=== PATIENT | male | born 1985 | race Caucasian/White ===

== ENCOUNTER 2021-12-23 15:10 | Inpatient (IN) | payer BC, MEDICAID, SELFPAY ==
[2021-12-23 15:24] VITALS: BP 164/119; PULSE 82; RESP 18; TEMP 36.2; O2SAT 98
[2021-12-23] MEDS: LORazepam 2 mg/mL INJ 1 mL IM (15:55)
[2021-12-23 16:11] VITALS: BMI 26.9
[2021-12-23 20:11] VITALS: BP 142/99; PULSE 79; RESP 18; TEMP 36.6; O2SAT 98
[2021-12-23] MEDS: acetaminophen 325 mg Tablet 650 MG PO (21:49)
[2021-12-23] MEDS: LORazepam 2 mg Tablet PO (21:49)
[2021-12-23] MEDS: mirtazapine 15 mg Tablet PO (23:11)
[2021-12-23] MEDS: gabapentin 300 mg Capsule PO (23:12)
--- NOTE | 2021-12-24 04:13 | PC.NURSE ---
2149 Patient scored a 13 on his CIWA and had complaints of a headache. Lorazepam 2 mg po and Tylenol 650 mg po was given. Medications were effective as the patient continues to rest.
[2021-12-24 06:00] VITALS: BP 136/88; PULSE 74; RESP 16; TEMP 36.5; O2SAT 97
--- NOTE | 2021-12-24 07:51 | W.PM.NPUH&PS ---
Providers/Chief Complaint Admitting Physician: Donell Aponte MD Chief Complaint: NPU Admit HPI NPU History of Present Illness Alan Alarcon is a 36 year old male Admitted through an outside emergency department with the following report: 36-year-old male presents after ingestion of morning glory seeds, a toxic alkaloid. He is tachypneic with dry mucous membranes and claims he cannot urinate. The pressure stable no clonus no fever. Bladder scan without significant retention patient declined straight cath. Discuss with poison control, recommend supportive care and benzodiazepines the patient becomes acutely agitated to possibly check ACK level. His pH is within normal limits normal renal function and negative coingestants of an ethanol patient was given IV fluids and observe for several hours patient medically cleared greater than six hours after ingestion per toxicology recommendations. Patient evaluated behavior health specialist recommends inpatient psychiatric admission. ?Affidavit from [facility] dairy management specialist: Alan presented to the [facility] ER be out walking for intentional ingestion of morning glory seeds and alcohol. Alan stated his intent was to get high and to try and hurt himself. Bennett stated that he was also weaving in and out of traffic on foot in a suicide attempt. Alan is still endorsing suicidal ideation with a plan of doing the same thing if he is discharged. Alan denies homicidal ideation or hallucinations. Alan's last discharge from [facility] was December 07. When he asked what changed lAan stated that he did not take his prescribed medication he received. Alan is diagnosed major depressive disorder, general anxiety disorder and antisocial personality disorder. Alan has had nine inpatient behavioral health admission since 2019. He was admitted to the neuropsychiatry unit for definitive treatment of these issues. He says that he started having more problems a few weeks ago when his mother kicked him out. He has been homeless most of the time recently. He says nothing happened but his mother just got tired of him living there. He has been unemployed for the last 3 months. He said he had a crap job and they did not treat him well and he quit. He ran out of his Celexa, Remeron, gabapentin and lisinopril about 2 weeks ago and has been worse since then. He says that he took an accidental overdose of heroin about 1 week ago and actually but was brought back to life with Narcan. He has been doing some methamphetamine but does not think that it is much of a problem. Methamphetamine has caused his brain to play tricks on him before but he does not think that it did this time. He took 3 morning glory seeds in an attempt to have an acid trip. He said it worked well. He said that he was jumping in and out of traffic trying to get hit by a car. He says that he is tired of his life and is hopeless. He was suicidal yesterday but denies suicidal ideation at this moment. He does not want to go to [place] and would like for us to look for a [place] health care facility to take him here.He says that his diagnosis is major depressive disorder and anxiety disorder. He has had multiple hospitalizations. He denies ever hearing voices or having hallucinations except as induced by methamphetamine. PAST PSYCHIATRIC HISTORY As above SOCIAL HISTORY As above Meds NPU Home Medications Medication Instructions Recorded Confirmed Last Taken Type citalopram 20 mg tablet 20 mg PO DAILY 12/23/21 12/23/21 Unknown History gabapentin 300 mg capsule 300 mg PO TID 12/23/21 12/23/21 Unknown History lisinopril 20 mg tablet 20 mg PO DAILY 12/23/21 12/23/21 Unknown History mirtazapine 15 mg tablet 15 mg PO BEDTIME 12/23/21 12/23/21 Unknown History Allergies Allergy/AdvReac Type Severity Reaction Status Date / Time No Known Allergies Allergy Verified 12/23/21 21:40 Mental Status Exam MSE Comments: This is a 36-year-old mildly overweight male who appears approximately his stated age says that he has no acute distress. He is in bed at 7:30 AM and awoke easily. He was pleasant and cooperative with the evaluation. He is poorly groomed and in hospital scrubs. He has several days growth of small. psychomotor activity is normal. Speech is at a regular rate and rhythm, normal volume, good articulation, not pressured. Alert, oriented X3 Attention and concentration appears to be intact. Memory is intact Mood is depressed. Affect is mildly dysphoric. Thought process is logical and goal-directed. Thought content: Denies auditory and visual hallucinations. No delusions or paranoia are noted. No current suicidal ideation but admits to suicidal ideation yesterday and no homicidal ideation. Fund of knowledge is average. Insight and judgment appear to be poor. Impulse control is impaired. Vitals/I&O/Wt Last Vital Signs Temp 97.7 F 12/24/21 06:00 Pulse 74 12/24/21 06:00 Resp 16 12/24/21 06:00 BP 136/88 12/24/21 06:00 Pulse Ox 97 12/24/21 06:00 Weight last 48 hrs Weight 97.522 kg A&P Assessment and plan (1) Drug abuse, opioid type: Status: Acute (2) Methamphetamine abuse: Status: Acute (3) Suicidal behavior: Status: Acute (4) Depression: Status: Acute (5) Anxiety: Status: Acute Plan This is a 36-year old male who reports a diagnosis of major depression and anxiety disorder who also abuses multiple substances including opiates and methamphetamine and was suicidal yesterday jumping in and out of traffic. Plan: 1. Restart current medications. 2. Continue every 15 minute checks for safety. 3. Encourage individual, group and milieu therapies. 4. Encourage sober living treatment after discharge at the highest level of care to which he is willing to commit. 5. We will monitor for safety for himself in the community prior to discharge. Involuntary Hold Information 96 Hour Hold: 96 Hour Involuntary Admission: No Attestations NPU Medical Necessity Statement*: Inpatient hospitalization is medically necessary and the clinically appropriate intervention at this time. We will initiate medications and make changes as indicated. He will be in the hospital for over 2 midnights. Likely length of stay 4-6 days Coding Level of Care Code Acute Client Technical Professional for Hossein Fwd Diagnoses Drug abuse, opioid type F11.10 Methamphetamine abuse F15.10 Suicidal behavior R45.89 Depression F32.A Anxiety F41.9
[2021-12-24] MEDS: thiamine 100 mg Tablet PO (09:15)
[2021-12-24] MEDS: lisinopril 20 mg Tablet PO (09:15)
[2021-12-24] MEDS: citalopram 20 mg Tablet PO (09:15)
[2021-12-24] MEDS: multivitamin therapeutic Tablet 1 TAB PO (09:15)
[2021-12-24] MEDS: gabapentin 300 mg Capsule PO ×3 (09:15→20:44)
[2021-12-24] MEDS: folic acid 1 mg Tablet PO (09:15)
--- NOTE | 2021-12-24 11:33 | NPU.GN ---
[facility] Group Topic:Janeth Puentes General Mood of Group: Alan did not attend group as he wanted to sleep.
[2021-12-24 14:00] VITALS: BP 144/97; PULSE 76; RESP 20; TEMP 37; O2SAT 97
[2021-12-24 20:10] VITALS: BP 158/97; PULSE 78; RESP 20; TEMP 36.3; O2SAT 98
[2021-12-24] MEDS: mirtazapine 15 mg Tablet PO (20:44)
[2021-12-25 06:00] VITALS: BP 154/95; PULSE 78; RESP 18; TEMP 36.5; O2SAT 98
[2021-12-25] MEDS: citalopram 20 mg Tablet PO (10:11)
[2021-12-25] MEDS: multivitamin therapeutic Tablet 1 TAB PO (10:11)
[2021-12-25] MEDS: folic acid 1 mg Tablet PO (10:11)
[2021-12-25] MEDS: gabapentin 300 mg Capsule PO ×3 (10:11→20:01)
[2021-12-25] MEDS: thiamine 100 mg Tablet PO (10:12)
[2021-12-25] MEDS: lisinopril 20 mg Tablet PO (10:12)
[2021-12-25] MEDS: LORazepam 2 mg Tablet PO ×2 (10:20→19:59)
[2021-12-25] MEDS: nicotine 4 mg lozenge MUCOUS MEM ×2 (10:36→17:30)
[2021-12-25] MEDS: blistex lip oint 7 gm Tube 1 APPLIC TOPICAL (10:36)
--- NOTE | 2021-12-25 11:22 | NPU.GN ---
[facility] Topic: Roll The Dice General Mood of Group: Alan did not attend group today.
--- NOTE | 2021-12-25 12:19 | P.NPUPN_ITS ---
Subjective NPU Subjective: He says that his anxiety and depression are still pretty bad. He denies any auditory or visual hallucinations. He does not feel that his medications are working so far but is going to give it more time. He just started taking them again yesterday. Mental Status Exam MSE Comments: This is a 36-year-old mildly overweight male who appears approximately his stated age says that he has no acute distress. He is in bed at 12:30 PM and awoke easily. He was pleasant and cooperative with the evaluation. He is poorly groomed and in hospital scrubs. He has several days growth of small. psychomotor activity is normal. Speech is at a regular rate and rhythm, normal volume, good articulation, not pressured. Alert, oriented X3 Attention and concentration appears to be intact. Memory is intact Mood is depressed. Affect is mildly dysphoric. Thought process is logical and goal-directed. Thought content: Denies auditory and visual hallucinations. No delusions or paranoia are noted. No current suicidal ideation but admits to suicidal ideation yesterday and no homicidal ideation. Fund of knowledge is average. Insight and judgment appear to be poor. Impulse control is impaired. Cognition: Patient Appearance: Appropriate Ability to Follow Directions: Excellent Patient Orientation (long list): Person, Place, Time, Name, Age, Birthday, Month and Year Comprehension Ability: No Impairment Hallucination Type: None Delusion Description: Not Present Thought Process: Appropriate Affect: Affect Description: Anxious and Flat Behavior: Patient Behavior: Appropriate and Cooperative Speech Pattern: Delayed Vitals/I&O/Wt Last Vital Signs Temp 97.7 F 12/25/21 06:00 Pulse 78 12/25/21 06:00 Resp 18 12/25/21 06:00 BP 154/95 12/25/21 06:00 Pulse Ox 98 12/25/21 06:00 Weight last 48 hrs Weight 97.522 kg A&P Assessment and plan (1) Drug abuse, opioid type: Status: Acute (2) Methamphetamine abuse: Status: Acute (3) Suicidal behavior: Status: Acute (4) Depression: Status: Acute (5) Anxiety: Status: Acute Plan This is a 36-year old male who reports a diagnosis of major depression and anxiety disorder who also abuses multiple substances including opiates and methamphetamine and was suicidal yesterday jumping in and out of traffic. Plan: 1. Restart current medications. 2. Continue every 15 minute checks for safety. 3. Encourage individual, group and milieu therapies. 4. Encourage sober living treatment after discharge at the highest level of care to which he is willing to commit. 5. We will monitor for safety for himself in the community prior to discharge. Involuntary Hold Information 96 Hour Hold: 96 Hour Involuntary Admission: No Attestations NPU Medical Necessity Statement*: Inpatient hospitalization is medically necessary and the clinically appropriate intervention at this time. We will initiate medications and make changes as indicated. Coding Level of Care Code Acute Assembler Final for g Fwd Diagnoses Drug abuse, opioid type F11.10 Methamphetamine abuse F15.10 Suicidal behavior R45.89 Depression F32.A Anxiety F41.9
[2021-12-25 14:00] VITALS: BP 150/90; PULSE 74; RESP 20; TEMP 36.8; O2SAT 96
[2021-12-25] MEDS: acetaminophen 325 mg Tablet 650 MG PO (19:58)
[2021-12-25] MEDS: ondansetron 4 MG Tablet PO (19:59)
[2021-12-25] MEDS: mirtazapine 15 mg Tablet PO (20:01)
[2021-12-25 21:05] VITALS: BP 135/80; PULSE 120; RESP 20; TEMP 36.6; O2SAT 96
--- NOTE | 2021-12-26 05:08 | PC.NURSE ---
1958 Patient in his room getting his vital signs taken. RN to assess. Patient scored a 13 on his CIWA. He had a headache and nausea. Lorazepam 2 mg po, Tylenol 650mg po, and Zofran 4mg po given for detox symptoms. Patient has been sleeping since medicated to this note. Medications effective.
[2021-12-26 06:00] VITALS: BP 122/80; PULSE 74; RESP 16; TEMP 36.2; O2SAT 97
[2021-12-26] MEDS: nicotine 4 mg lozenge MUCOUS MEM ×3 (09:24→19:59)
[2021-12-26] MEDS: lisinopril 20 mg Tablet PO (09:24)
[2021-12-26] MEDS: gabapentin 300 mg Capsule PO ×3 (09:24→21:03)
[2021-12-26] MEDS: citalopram 20 mg Tablet PO (09:24)
[2021-12-26] MEDS: multivitamin therapeutic Tablet 1 TAB PO (09:24)
[2021-12-26] MEDS: folic acid 1 mg Tablet PO (09:24)
[2021-12-26] MEDS: blistex lip oint 7 gm Tube 1 APPLIC TOPICAL (09:24)
[2021-12-26] MEDS: thiamine 100 mg Tablet PO (09:24)
--- NOTE | 2021-12-26 11:33 | NPU.GN ---
[facility] Topic:Coping Mechanisms Activity General Mood of Group:Alan did not attend group today.
--- NOTE | 2021-12-26 13:38 | P.NPUDS_ITS ---
Diagnoses at Discharge Discharge Diagnosis (1) Drug abuse, opioid type: Status: Acute (2) Methamphetamine abuse: Status: Acute (3) Suicidal behavior: Status: Acute (4) Depression: Status: Acute (5) Anxiety: Status: Acute Reason for Visit Reason for Visit: NPU Admit Brief History: History of Present Illness Alan Alarcon is a 36 year old male Admitted through an outside emergency department with the following report: 36-year-old male presents after ingestion of morning glory seeds, a toxic alkaloid. He is tachypneic with dry mucous membranes and claims he cannot urinate. The pressure stable no clonus no fever. Bladder scan without significant retention patient declined straight cath. Discuss with poison control, recommend supportive care and benzodiazepines the patient becomes acutely agitated to possibly check ACK level. His pH is within normal limits normal renal function and negative coingestants of an ethanol patient was given IV fluids and observe for several hours patient medically cleared greater than six hours after ingestion per toxicology recommendations. Patient evaluated behavior health specialist recommends inpatient psychiatric admission. ?Affidavit from [facility] office services specialist: Alan presented to the [facility] be out walking for intentional ingestion of morning glory seeds and alcohol. Alan stated his intent was to get high and to try and hurt himself. Bennett stated that he was also weaving in and out of traffic on foot in a suicide attempt. Alan is still endorsing suicidal ideation with a plan of doing the same thing if he is discharged. Alan denies homicidal ideation or hallucinations. Alan's last discharge from [facility] was December 07. When he asked what changed Alan stated that he did not take his prescribed medication he received. Alan is diagnosed major depressive disorder, general anxiety disorder and antisocial personality disorder. Alan has had nine inpatient [facility] admission since 2019. He was admitted to the neuropsychiatry unit for definitive treatment of these issues.? He says that he started having more problems a few weeks ago when his mother kicked him out.? He has been homeless most of the time recently.? He says nothing happened but his mother just got tired of him living there.? He has been unemployed for the last 3 months.? He said he had a crap job and they did not treat him well and he quit.? He ran out of his Celexa, Remeron, gabapentin and lisinopril about 2 weeks ago and has been worse since then.? He says that he took an accidental overdose of heroin about 1 week ago and actually but was brought back to life with Narcan.? He has been doing some methamphetamine but does not think that it is much of a problem.? Methamphetamine has caused his brain to play tricks on him before but he does not think that it did this time.? He took 3 morning glory seeds in an attempt to have an acid trip.? He said it worked well.? He said that he was jumping in and out of traffic trying to get hit by a car.? He says that he is tired of his life and is hopeless.? He was suicidal yesterday but denies suicidal ideation at this moment.? He does not want to go to [place] and would like for us to look for a [place] care facility to take him here.He says that his diagnosis is major depressive disorder and anxiety disorder.? He has had multiple hospitalizations.? He denies ever hearing voices or having hallucinations except as induced by methamphetamine. Hospital Course Hospital Course He slowly acclimated to the individual, group and milieu therapies provided. He was continued on his outpatient medications. for tolerated these doses and showed steady improvement during his stay. He was able to contract for safety outside hospital prior to discharge. During the hospitalization, patient had routine laboratory studies which were within normal limits except for few outliers. Additionally there was a general medical evaluation which was also within normal limits and revealed no new acute processes. Discharge Summary: At the time of discharge, lethality was denied and psychosis was resolving. Mood and anxiety were well managed. Patient endorsed a plan to follow-up with the aftercare recommendations of the treatment team. Patient was evaluated and deemed to be absent credible lethality, and had achieved the maximum benefit from an inpatient hospitalization, so was discharged. Involuntary Hold Information 96 Hour Hold: 96 Hour Involuntary Admission: No Mental Status Exam MSE Comments: This is a 36-year-old mildly overweight male who appears approximately his stated age says that he has no acute distress. He is in sitting in the dayroom at 8:30 AM. He was pleasant and cooperative with the evaluation. He is poorly groomed and in hospital scrubs. He has several days growth of small. psychomotor activity is normal. Speech is at a regular rate and rhythm, normal volume, good articulation, not pressured. Alert, oriented X3 Attention and concentration appears to be intact. Memory is intact Mood is depressed but better. Affect is mildly dysphoric. Thought process is logical and goal-directed. Thought content: Denies auditory and visual hallucinations. No delusions or paranoia are noted. No current suicidal ideation but admits to suicidal ideation yesterday and no homicidal ideation. Fund of knowledge is average. Insight and judgment appear to be poor. Impulse control is impaired. Cognition: Patient Appearance: Appropriate Ability to Follow Directions: Excellent Patient Orientation (long list): Person, Place, Time, Name, Age, Birthday, Month and Year Comprehension Ability: No Impairment Hallucination Type: None Delusion Description: Not Present Thought Process: Appropriate Affect: Affect Description: Appropriate Behavior: Patient Behavior: Appropriate and Cooperative Speech Pattern: Appropriate and Clear Discharge Data Vitals: Last Vital Signs Temp 97.2 F L 12/26/21 06:00 Pulse 74 12/26/21 06:00 Resp 16 12/26/21 06:00 BP 122/80 12/26/21 06:00 Pulse Ox 97 12/26/21 06:00 Discharge Plan Discharge Patient Disposition: Home Condition: Stable Prescriptions: Continued lisinopril 20 mg Tablet 20 mg PO DAILY 30 Days Qty: 30 0RF citalopram 20 mg Tablet 20 mg PO DAILY 30 Days Qty: 30 0RF gabapentin 300 mg Capsule 300 mg PO TID 30 Days Qty: 90 0RF mirtazapine 15 mg Tablet 15 mg PO BEDTIME 30 Days Qty: 30 0RF Discharge Orders: Discharge Order (Routine); Ordered 12/26/21 Ordered By: Donell Aponte Discharge Diet: Regular Discharge Activity: Resume usual activity Patient Instructions: Opioid Safety Discharge Attestations NPU Time Spent in Discharge Care*: less than 30 min Specific Discharge Activities: Specific discharge activities: educating patient, discussing with immigration case worker/social workers/dc planners, documenting/other paperwork and evaluating patient/reviewing data Coding Level of Care Code Acute [facility] DC note Diagnoses Drug abuse, opioid type F11.10 Methamphetamine abuse F15.10 Suicidal behavior R45.89 Depression F32.A Anxiety F41.9
[2021-12-26 13:58] VITALS: BP 122/80; PULSE 74; RESP 16; TEMP 36.2; O2SAT 97
[2021-12-26 14:00] VITALS: BP 144/91; PULSE 89; RESP 18; TEMP 36.4; O2SAT 96
[2021-12-26] MEDS: LORazepam 2 mg Tablet PO (17:50)
[2021-12-26] MEDS: mirtazapine 15 mg Tablet PO (21:03)
[2021-12-26 21:05] VITALS: BP 117/80; PULSE 108; RESP 17; TEMP 36.3; O2SAT 97
[2021-12-27 06:00] VITALS: BP 103/66; PULSE 70; RESP 19; TEMP 36.4; O2SAT 97
[2021-12-27] MEDS: citalopram 20 mg Tablet PO (09:16)
[2021-12-27] MEDS: thiamine 100 mg Tablet PO (09:16)
[2021-12-27] MEDS: gabapentin 300 mg Capsule PO (09:16)
[2021-12-27] MEDS: multivitamin therapeutic Tablet 1 TAB PO (09:16)
[2021-12-27] MEDS: nicotine 4 mg lozenge MUCOUS MEM (09:16)
[2021-12-27] MEDS: lisinopril 20 mg Tablet PO (09:16)
[2021-12-27] MEDS: folic acid 1 mg Tablet PO (09:16)
== END 2021-12-27 12:09 | disposition home or self-care (01) | DRG 918 ==
PROVIDERS: Admitting Provider Psychiatry & Neurology Psychiatry; Visit Provider Psychiatry & Neurology Psychiatry
DX: T40.992A Poisoning by other psychodysleptics [hallucinogens], intentional self-harm, initial encounter (principal); F32.9 Major depressive disorder, single episode, unspecified; F41.1 Generalized anxiety disorder; F60.2 Antisocial personality disorder; Z59.00 Homelessness unspecified; F11.10 Opioid abuse, uncomplicated; F15.10 Other stimulant abuse, uncomplicated
CPT/HCPCS: 96372; 97165; J2060; J3411; Q0162

== ENCOUNTER 2022-11-30 19:39 | Inpatient (IN) | payer OTHER, BC, MEDICAID, SELFPAY ==
[2022-11-30] MEDS: LORazepam 2 mg Tablet PO (21:07)
--- NOTE | 2022-11-30 21:17 | P.CONIM_ITS ---
Providers/Reason For Consult Consulting Physician/Specialty*: Eddie Abernathy MD, hospitalist Reason for Consult*: Swollen leg Requesting Physician: Dr. Sanders Attending Physician: Tian Sanders MD History of Present Illness History of Present Illness Alan Alarcon is a 37 year old male presenting as a transfer to the neuropsychiatric unit from [facility] in [place]. He apparently showed up there on the , after alcohol and methamphetamine use with suicidal and homicidal ideation. He reports he is still very depressed. He does not remember what happened to his leg, but has been swollen for the last 2 days. There were some notes at [facility] that he may have injured it somehow. He reports that throbs, is red, and is painful. He reports no previous issues with the leg. At [facility], an x-ray was done of the ankle. He denies any fevers. Review of Systems General: Reports: 10 or more systems reviewed and unremarkable except in HPI and below Const: Denies: fever(s), chills or fatigue Psych: Reports: anxiety and depression Medications/Allergies Home Medications Medication Instructions Recorded Confirmed Last Taken Type citalopram 20 mg tablet 20 mg PO DAILY 30 days #30 tabs 12/26/21 Unknown Rx gabapentin 300 mg capsule 300 mg PO TID 30 days #90 caps 12/26/21 Unknown Rx lisinopril 20 mg tablet 20 mg PO DAILY 30 days #30 tabs 12/26/21 Unknown Rx mirtazapine 15 mg tablet 15 mg PO BEDTIME 30 days #30 tabs 12/26/21 Unknown Rx Allergies Allergy/AdvReac Type Severity Reaction Status Date / Time No Known Allergies Allergy Verified 12/23/21 21:40 Current Medications Generic Name Dose Route Start Last Admin Trade Name Freq PRN Reason Stop Dose Admin Lorazepam 2 mg 11/30/22 20:16 11/30/22 21:07 Lorazepam 2 Mg Tablet PO 2 mg PROTOCOL PRN Administration WITHDRAWAL Protocol PFSH Acute PFSH: Medical History (Updated 11/30/22 @ 21:29 by Eddie Abernathy MD) Alcoholism Amphetamine use Hepatitis C Hypertension IgA nephropathy Social History (Updated 11/30/22 @ 21:20 by Eddie Abernathy MD) Smoking and tobacco status: current every day smoker Alcohol intake: current Substance/Drug Use: current Physical Exam Narrative: General exam is a white male, conversive, in no distress but compl aining of left leg pain. Blood pressure is noted to be high. It was significantly high at [facility] as well HEENT: Atraumatic and normocephalic Neck is supple no lymphadenopathy thyromegaly Cardiovascular regular rate and rhythm without murmur Lungs clear no wheezing or crackles Abdomen is soft with positive bowel sounds. No obvious organomegaly exam is deferred Extremities left lower extremity demonstrates some erythema and increased warmth. Some edema, mainly over the lateral leg. Cap refill is brisk. There are few abrasions, left ankle mainly posterior. Skin see findings above Neuro no obvious focal deficits Data Other Labs: Laboratory at [facility] included a CBC demonstrating white blood count of 13.2, hemoglobin of 13.3, platelet count of 3 and 46,000. Sodium 141, potassium 4.2, chloride 100, bicarb 21, BUN 30, creatinine 1.69, glucose 71 TSH was normal Salicylate and acetaminophen level were negative Amphetamine urine drug screen positive. Alcohol level 19. ALT 37, AST 173, rest of LFTs normal Ankle x-ray negative UA 1-6 red blood cells, 0-2 white blood cells COVID and influenza were negative A&P Assessment and plan (1) Cellulitis: He has a swollen left lower extremity. There is increased warmth. There is history of injury to the area, and some abrasion to his ankle. This appears to be cellulitis and he reports it is gotten worse over the last 2 days. He did have an x-ray done at [facility] but I do not see any other investigation or treatment. Secondary to his history we will treat cellulitis with Rocephin 1 g IM now, doxycycline 100 mg twice daily, and reevaluate tomorrow. Avoiding Bactrim secondary to history of elevated creatinine He does not appear septic, and does not have a fever. Secondary to his recent prolonged stay in the ER cannot completely rule out DVT although thought less likely. Check venous duplex. Secondary to abrasion on skin, tetanus shot Repeat x-rays of ankle and foot Close clinical follow-up Tylenol for pain, tramadol for breakthrough pain. Secondary to history of drug use try to avoid narcotics. We will also try to avoid ibuprofen with his abnormal creatinine. (2) Hypertension: Patient with elevated blood pressure. This was elevated at the ER at [facility] as well. Previously he was taking blood pressure on a daily basis. Norvasc 5 mg x 1 now Await BMP prior to deciding on daily blood pressure medication (3) IgA nephropathy: Recheck creatinine Avoid ibuprofen with past history of elevated creatinine. Avoid renal toxic medication. Plan Homicidal/suicidal ideation Substance abuse Multiple other medical problems as denoted in the past medical history Thank you for this consultation Consult Attestations Medical Necessity Statement: As per primary Diagnoses Cellulitis L03.90 Hypertension I10 IgA nephropathy N02.8
[2022-11-30 21:19] VITALS: BP 168/131; PULSE 96; RESP 18; TEMP 36.5; O2SAT 100
--- NOTE | 2022-11-30 21:22 | XRR_ITS ---
PROCEDURE INFORMATION: Exam: XR Left Ankle Exam date and time: 11/30/2022 9:51 PM Age: 37 years old Clinical indication: Pain; Ankle; Left; Additional info: Pain , swelling TECHNIQUE: Imaging protocol: Radiologic exam of the Left ankle. Views: 3 or more views. COMPARISON: CR (LOW EXM, ) 11/30/2022 9:37 PM FINDINGS: Bones/joints: There is no acute fracture or dislocation. If symptoms persist, follow-up imaging in several days may be useful to exclude an occult fracture. No other significant acute bone or joint abnormality. Soft tissues: Probably some diffuse soft tissue swelling. No visible soft tissue gas. XR/XR ankle LT min 3V* [id number] IMPRESSION: No acute fracture or dislocation.
--- NOTE | 2022-11-30 21:22 | XRR_ITS ---
PROCEDURE INFORMATION: Exam: XR Right Ankle Exam date and time: 11/30/2022 9:55 PM Age: 37 years old Clinical indication: Pain; Ankle; Right; Additional info: Pain, edema TECHNIQUE: Imaging protocol: Radiologic exam of the Right ankle. Views: 3 or more views. COMPARISON: No relevant prior studies available. FINDINGS: Bones/joints: There is no acute fracture or dislocation. If symptoms persist, follow-up imaging in several days may be useful to exclude an occult fracture. No other significant acute bone or joint abnormality. Soft tissues: Probably some diffuse soft tissue swelling. No visible soft tissue gas. XR/XR ankle RT min 3V* [id number] IMPRESSION: No acute fracture or dislocation.
--- NOTE | 2022-11-30 21:22 | XRR_ITS ---
PROCEDURE INFORMATION: Exam: XR Left Foot Exam date and time: 11/30/2022 9:37 PM Age: 37 years old Clinical indication: Pain; Foot; Left; Additional info: Pain , edema TECHNIQUE: Imaging protocol: Radiologic exam of the Left foot. Views: 3 or more views. COMPARISON: No relevant prior studies available. FINDINGS: Bones/joints: There is no acute fracture or dislocation. If symptoms persist, follow-up imaging in several days may be useful to exclude an occult fracture. No other significant acute bone or joint abnormality. Soft tissues: Probably some diffuse soft tissue swelling. No visible soft tissue gas. XR/XR foot LT min 3V* [id number] IMPRESSION: No acute fracture or dislocation.
--- NOTE | 2022-11-30 21:22 | USR_ITS ---
PROCEDURE INFORMATION: Exam: US Duplex Left Lower Extremity Veins, Limited Exam date and time: 11/30/2022 9:59 PM Age: 37 years old Clinical indication: Edema, localized; Lower extremity, left; Additional info: Edema, erythema TECHNIQUE: Imaging protocol: Real-time duplex ultrasound of the Left extremity with 2-D sequeira scale, color Doppler flow and spectral waveform analysis including responses to compression and other maneuvers (when performed) with image documentation. Limited exam focused on the left lower extremity veins. COMPARISON: No relevant prior studies available. FINDINGS: Evaluated veins include the left common femoral, proximal profunda femoral, proximal/mid/distal superficial femoral, popliteal, posterior tibial, peroneal, anterior tibial, and proximal greater saphenous veins. No visible clot in the included veins. The included veins appear normally compressible. Duplex Doppler evaluation demonstrates flow in the evaluated veins. US/CV venous duplex [facility] [id number] IMPRESSION: No evidence of acute left lower extremity DVT.
[2022-11-30] MEDS: nicotine 4 mg lozenge MUCOUS MEM (22:17)
[2022-11-30] MEDS: TRAMadol 50 mg Tablet PO (22:17)
[2022-11-30] MEDS: trazodone 50 mg Tablet PO (22:18)
[2022-11-30 22:23] LABS: Basophils # 0.1 10^3/uL (0.0-0.1); Basophils % 0.6 %; Eosinophils # 0.7 10^3/uL (0.0-0.8); Hematocrit 38.8 % (42.0-52.0); Hemoglobin 13.1 g/dL (11.7-16.6); Lymphocytes # 2.4 10^3/uL (0.8-4.8); Lymphocytes % 29.7 %; Mean Corpuscular HGB Conc 33.8 g/dL (30.0-36.0); Mean Corpuscular Hemoglobin 31.2 pg (28.0-34.0); Mean Corpuscular Volume 92.4 fl (80-94); Mean Platelet Volume 9.8 fL (7.4-10.4); Monocytes # 0.5 10^3/uL (0.2-0.9); Monocytes % 5.7 %; Neutrophils # 4.49 10^3/uL (1.8-7.7); Neutrophils % 55.6 %; Nucleated Red Blood Cells % 0 %; Platelet Count 310 10^3/cmm (130-400); White Blood Count 8.1 10^3/uL (4.0-10.0)
--- NOTE | 2022-11-30 22:30 | PC.NURSE ---
Patient seen by Dr. Abernathy hospitalist. N.O. received for ultrasound of LLE, CMP and x-ray of LLE. N.O. receives for tramadol for break through pain, Rocephin 1gm IM Now, Tetnus IM now, doxycycline 100mg BID. Suspected cellulitis. Medications given as ordered. Patient educated on medications and all questions answered.
[2022-11-30] MEDS: cefTRIAXone 1,000 MG, lidocaine 1% 2.1 ML in SYRINGE 1 EACH 2.1 MG IM (22:40)
[2022-11-30 22:45] LABS: Alanine Aminotransferase 30 U/L (0-41); Albumin Level 4.1 g/dL (3.5-5.2); Alkaline Phosphatase 76 U/L (40-130); Anion Gap 13.3 (5-19); Aspartate Amino Transferase 76 U/L (0-40); Blood Urea Nitrogen 23 mg/dL (6-20); Calcium 9.6 mg/dL (8.5-10.5); Carbon Dioxide 30 mmol/L (22-29); Chloride 99 mmol/L (98-107); Globulin 2.8 g/dL (1.3-4.6); Glomerular Filtration Rate 48.6 mL/min (90-130); Glucose 79 mg/dL (65-115); Osmolality Calculated 289 mOsm/kg (285-295); Potassium 4.3 mmol/L (3.5-5.1); Sodium 138 mmol/L (136-145); Total Bilirubin 0.2 mg/dL (0.15-1.2); Total Protein 6.9 g/dL (6.6-8.7)
[2022-11-30] MEDS: tetanus-diphtheria tox (adult) 0.5 mL SDV IM (22:45)
[2022-11-30] MEDS: amlodipine 5 mg Tablet PO (22:49)
[2022-11-30] MEDS: doxycycline 100 mg Tablet PO (22:49)
--- NOTE | 2022-11-30 23:00 | PC.NURSE ---
1929 patient arrived to floor via direct admit from [place], [place]. Patient arrived to unit on stretcher accompanied by EMT's and security. 37yr.old male admitted to room 151-1 with DX of SI. Patient is voluntary. Patient alert and Ox3. Appears anxious. Cooperative with assessment. Denies any current thoughts of SI but reports having SI over the past few days. Patient had a plan of using scissors to cut wrist but came to ED for help. Denies HI or AVH. Did c/o pain in LLE. LLE noted to be edematous and red from toes to mid calf. Warm to touch. Hospitalist contacted by housekeeper nanny for consult. Dr. Sanders made aware as well. Patient states he has a history of meth use and ETOH abuse. Stated last used both 2 days ago. Patient states he has served time in alf for having multiple DUI'S. Skin assessment completed with no open areas noted and no contraband found. Unit rules and expectations reviewed and voiced understanding. Snacks and fluids taken.
[2022-12-01] MEDS: LORazepam 2 mg Tablet PO ×2 (03:33→18:14)
[2022-12-01 06:00] VITALS: BP 128/73; PULSE 86; RESP 17; TEMP 36.7; O2SAT 95
[2022-12-01] MEDS: doxycycline 100 mg Tablet PO ×2 (08:26→18:14)
[2022-12-01] MEDS: thiamine 100 mg Tablet PO (08:26)
[2022-12-01] MEDS: folic acid 1 mg Tablet PO (08:27)
[2022-12-01] MEDS: multivitamin therapeutic Tablet 1 TAB PO (08:27)
[2022-12-01] MEDS: nicotine 4 mg lozenge MUCOUS MEM ×3 (08:31→21:40)
[2022-12-01] MEDS: TRAMadol 50 mg Tablet PO ×2 (08:31→18:15)
--- NOTE | 2022-12-01 09:15 | PM.PN ---
Subjective Subjective: Seen today. afebrile overnight Vitals/I&O/Wt Last Vital Signs Temp 98.1 F 12/01/22 06:00 Pulse 86 12/01/22 06:00 Resp 17 12/01/22 06:00 BP 128/73 12/01/22 06:00 Pulse Ox 95 12/01/22 06:00 O2 Del Method 12/01/22 06:00 Physical Exam Narrative: General exam: nad Cardiovascular regular rate and rhythm without murmur Lungs clear no wheezing or crackles Abdomen is soft with positive bowel sounds. Extremities left lower extremity demonstrates some erythema and increased warmth. Some edema, mainly over the lateral leg. Much improved since yesterday, almost resolved. Data 11/30/22 22:00 11/30/22 22:00 A&P Assessment and plan (1) Cellulitis: He has a swollen left lower extremity. There is increased warmth. There is history of injury to the area, and some abrasion to his ankle. This appears to be cellulitis and he reports it is gotten worse over the last 2 days. He did have an x-ray done at [facility] but I do not see any other investigation or treatment. Continue doxycycline 100 BID. Secondary to abrasion on skin, tetanus shot was given 11/30 Repeat x-rays of ankle and foot: Negative for fracture or infection Venous doppler negative for DVT. Close clinical follow-up Tylenol for pain, tramadol for breakthrough pain. Secondary to history of drug use try to avoid narcotics. We will also try to avoid ibuprofen with his abnormal creatinine. (2) Hypertension: Patient with elevated blood pressure. This was elevated at the ER at [facility] as well. Previously he was taking blood pressure on a daily basis. He got norvasc 5 x 1 yesterday. Check BMP in AM (3) IgA nephropathy: Recheck creatinine Avoid ibuprofen with past history of elevated creatinine. Avoid renal toxic medication. Plan Homicidal/suicidal ideation Substance abuse Multiple other medical problems as denoted in the past medical history Thank you for this consultation Attestations Medical Necessity Statement*: Defer to primary team Diagnoses Cellulitis L03.90 Hypertension I10 IgA nephropathy N02.8
--- NOTE | 2022-12-01 10:15 | P.NPUHP_ITS ---
Providers/Chief Complaint Admitting Physician: Tian Sanders MD Chief Complaint: depression HPI NPU History of Present Illness Alan Alarcon is a 37 year old male who had previously been evaluated at [facility] and admitted for 3 days in December 2021 who was transferred here from the emergency department at [facility] with suicidal ideation. Patient was admitted to the neuropsychiatric unit for further evaluation and treatment. He reports an extended history of depression and states that he has had some suicidal thoughts and reports that he has been homeless for the last few weeks. He reports that 1 week ago he was released from alf after staying in alf for 28 days for a drug-related offense. He has reported an extensive history of fentanyl abuse with reported opiate withdrawal occurring. Furthermore, he reports a significant history of alcohol dependence with a history of increased tolerance and significant withdrawal symptoms including seizures and blackouts. He reports consuming approximately half a gallon of alcohol a day. He also reports methamphetamine use for greater than 20 years. He reports having thoughts of killing himself and states that shortly after using methamphetamine he had had heard voices stating that he should hurt others. He had reported a history of psychotic symptoms secondary to the use of methamphetamine. He had also reported a past history of previous suicide attempts including drinking peroxide and cutting his wrist. He had reported feeling more paranoid over the past week. He had reported having problems with sleep continuity disruption and stated that he had not had his medication in several weeks. Denies any past history of tita. Past psychiatric history: He reports several psychiatric hospitalizations. He reports 7 previous hospitalizations beginning at the age of 23 suicidal ideation and a few for detox off of alcohol. Outpatient psychiatric history is reported to be through the [facility]. He reports previous medication trials include Celexa Remeron and gabapentin. He has no reported history of psychotherapy. Previous diagnoses include major depressive disorder polysubstance abuse and antisocial personality disorder. Medications: Mirtazapine 15 mg at night, gabapentin 300 mg 3 times a day, lisino pril 20 mg a day Medical history: Hypertension Surgical history right arm surgery Allergies: No known drug allergies Family psychiatric history: Alcohol dependence in mother Drug and alcohol history: Patient reports marijuana use beginning at the age of 14 leading to the use of stimulants including cocaine at the age of 17 followed by methamphetamine and alcohol abuse also at the age of 17. He reports a history of inpatient rehabilitation stints in the past and a variety of facilities near [place]. He had reported no history of methadone or Suboxone treatment for opiate dependence but reports opiate use for several years as well with withdrawal symptoms. He currently reports his significant consumption of alcohol on a daily basis for several years along with methamphetamine use for the last 20 years. Social history: Developmental history appeared unremarkable. He was born in [facility] and raised by his biological parents until they at the age of 8. He reports that he lived in between homes and is the only child of his biological parents. He reported no history of sexual physical or emotional abuse. He reports that he grew up near [place] and had graduated high school and attended 2 years of college at which time he began using illicit substances. He reports struggling to maintain work with a history of multiple incarcerations and a history of legal problems stating that he spent 4 years in longterm from the 2009 through 2013. Meds NPU Home Medications Medication Instructions Recorded Confirmed Last Taken Type citalopram 20 mg tablet 20 mg PO DAILY 30 days #30 tabs 12/26/21 Unknown Rx gabapentin 300 mg capsule 300 mg PO TID 30 days #90 caps 12/26/21 Unknown Rx lisinopril 20 mg tablet 20 mg PO DAILY 30 days #30 tabs 12/26/21 Unknown Rx mirtazapine 15 mg tablet 15 mg PO BEDTIME 30 days #30 tabs 12/26/21 Unknown Rx Allergies Allergy/AdvReac Type Severity Reaction Status Date / Time No Known Allergies Allergy Verified 12/23/21 21:40 [facility] NPU PFS: Medical History (Updated 12/01/22 @ 15:36 by Tian Sanders MD) Alcoholism Amphetamine use Hepatitis C Hypertension IgA nephropathy Social History (Updated 11/30/22 @ 21:20 by Eddie Abernathy MD) Smoking and tobacco status: current every day smoker Alcohol intake: current Substance/Drug Use: current Mental Status Exam MSE Comments: He is a casually dressed white male who appeared his stated age with a disheveled appearance and poor hygiene. His gait was within normal limits. There was no evidence of any abnormal involuntary motor movements tics or tremors appreciated. His speech was normal in regards to rate rhythm and prosody. His mood was described as depressed. His affect was restricted in range and mood congruent. He did not appear to be responding to internal stimuli. There was no evidence of any delusional thinking at this time and he endorsed auditory hallucinations but stated they had been more faint. There is no evidence of any visual hallucinations. His recent and remote memory appeared grossly intact. His insight was poor. His judgment is poor. His impulse control appeared poor as well. His attention span was variable. Vitals/I&O/Wt Last Vital Signs Temp 98.1 F 12/01/22 06:00 Pulse 86 12/01/22 06:00 Resp 17 12/01/22 06:00 BP 128/73 12/01/22 06:00 Pulse Ox 95 12/01/22 06:00 O2 Del Method 12/01/22 06:00 Data NPU 11/30/22 22:00 11/30/22 22:00 A&P Assessment and plan (1) Methamphetamine abuse: (2) Opioid dependence: (3) Alcohol dependence: Plan Patient is a 37-year-old white male with polysubstance abuse including opiates methamphetamine and alcohol along with a history of depression currently admitted with suicidal ideation with genetic loading for substance abuse as well. He is currently homeless. #1. Encourage sobriety at the highest level of care possible at this time #2. Therapeutic observation 15-minute checks. #3. CIWA protocol to monitor for alcohol withdrawal. #4 medicine consult to evaluate for possible cellulitis in right foot. Patient started on antibiotic. #5. Restart Remeron with likely increase and began Suboxone to target opiate dependence. #6 we will attempt to gather collateral information. Involuntary Hold Information 96 Hour Hold: 96 Hour Involuntary Admission: No Attestations NPU Medical Necessity Statement*: Patient will be hospitalized in the neuropsychiatric unit with length of stay expected to exceed 2 midnights with likely length of stay of 4 to 6 days. Patient's medications will be adjusted and reexamined while here on the unit. Coding Level of Care Code Acute Code for [facility] Diagnoses Methamphetamine abuse F15.10 Opioid dependence F11.20 Alcohol dependence F10.20
--- NOTE | 2022-12-01 10:52 | PC.NURSE ---
PRN Admin at 0831 Patient's left leg, ankle, and foot appear swollen. No edema noted, warm and hard to touch. Patient's lower left leg appears red. Cellulitis noted from examination by hospitalist last night. Patient currently on doxycyline for cellulitis. Patient voices complaint of pain at a 7/10. Patient administered tramadol 50 mg PO.
[2022-12-01 14:00] VITALS: BP 163/88; PULSE 99; RESP 20; TEMP 36.9; O2SAT 95
[2022-12-01] MEDS: buprenorphine-naloxone 4-1 mg Film 0.5 EACH SUBLINGUAL (18:14)
[2022-12-01 21:07] VITALS: BP 150/105; PULSE 83; RESP 18; TEMP 36.7; O2SAT 97
[2022-12-01] MEDS: mirtazapine 15 mg Tablet PO (21:38)
[2022-12-02] MEDS: LORazepam 2 mg Tablet PO (01:37)
[2022-12-02 06:00] VITALS: BP 134/88; PULSE 79; TEMP 36.4; O2SAT 96
[2022-12-02 08:33] LABS: Basophils # 0.1 10^3/uL (0.0-0.1); Basophils % 0.5 %; Eosinophils # 0.3 10^3/uL (0.0-0.8); Eosinophils % 3.3 %; Hematocrit 39.9 % (42.0-52.0); Lymphocytes # 2.8 10^3/uL (0.8-4.8); Lymphocytes % 29.6 %; Mean Corpuscular HGB Conc 35.1 g/dL (30.0-36.0); Mean Corpuscular Hemoglobin 31.8 pg (28.0-34.0); Mean Corpuscular Volume 90.7 fl (80-94); Mean Platelet Volume 9.6 fL (7.4-10.4); Monocytes # 0.4 10^3/uL (0.2-0.9); Monocytes % 4.6 %; Neutrophils # 5.76 10^3/uL (1.8-7.7); Neutrophils % 61.6 %; Nucleated Red Blood Cells % 0 %; Platelet Count 321 10^3/cmm (130-400); Red Cell Distribution Width 11.8 % (12.1-15.1); White Blood Count 9.4 10^3/uL (4.0-10.0)
[2022-12-02 08:52] LABS: Anion Gap 16.4 (5-19); Blood Urea Nitrogen 23 mg/dL (6-20); Calcium 9.6 mg/dL (8.5-10.5); Carbon Dioxide 25 mmol/L (22-29); Chloride 102 mmol/L (98-107); Glomerular Filtration Rate 61.8 mL/min (90-130); Glucose 88 mg/dL (65-115); Osmolality Calculated 291 mOsm/kg (285-295); Potassium 4.4 mmol/L (3.5-5.1); Sodium 139 mmol/L (136-145)
[2022-12-02] MEDS: doxycycline 100 mg Tablet PO ×2 (09:08→17:35)
[2022-12-02] MEDS: buprenorphine-naloxone 4-1 mg Film 0.5 EACH SUBLINGUAL (09:08)
[2022-12-02] MEDS: folic acid 1 mg Tablet PO (09:08)
[2022-12-02] MEDS: multivitamin therapeutic Tablet 1 TAB PO (09:08)
[2022-12-02] MEDS: thiamine 100 mg Tablet PO (09:08)
[2022-12-02] MEDS: nicotine 4 mg lozenge MUCOUS MEM (09:16)
[2022-12-02] MEDS: diphenhydrAMINE 50 mg Capsule PO (09:16)
[2022-12-02] MEDS: ondansetron 4 MG Tablet PO ×4 (13:00→18:26)
[2022-12-02] MEDS: TRAMadol 50 mg Tablet PO ×2 (13:00→13:15)
--- NOTE | 2022-12-02 13:12 | PC.NURSE ---
PT GIVEN PO ONDANSETRON AND TRAMDOL, PT REPORTING FEELING VERY NAUSOUS, PT TOOK MEDS AND THEN WENT TO ROOM, APPROX 5 MIN LATER HE HAD VOMITED IN ROOM AND BATHROOM. THIS NURSE PULLED NEW MEDS TO GIVE PT SINCE HE VOMITED PREVIOUS MEDS THAT WERE ADMIN
[2022-12-02 14:00] VITALS: BP 115/75; PULSE 99; RESP 20; TEMP 36.9; O2SAT 96
[2022-12-02] MEDS: LORazepam 2 mg/mL INJ 1 mL IM (17:34)
--- NOTE | 2022-12-02 18:02 | PC.NURSE ---
pt C/O NAUSEA, HEADACHE AND URINE RETENTION, DR GILLILAND NOTIFIED, PT GIVEN IM ATAVIN, PO ZOFRAN AND SCHEDULED ABX. APPROX 5 MIN AFTER MEDS TAKEN PT WAS VOMITING IN THE THE TOLIET IN ROOM. PT DID GIVE URINE SAMPLE FOR ORDERED UA. PT SUBOXONE HELD PER DR GILLILAND. PT IS RESTING IN BED, NO OTHER ORDERS RECEIVED
--- NOTE | 2022-12-02 18:17 | W.PM.NPUPNS ---
Subjective NPU Subjective: Patient is a 37-year-old white male with a history of alcohol dependence opiate dependence and methamphetamine abuse admitted with depression. The patient had episodes of emesis today. He had reported nausea and stated that he was having some abdominal discomfort. Patient had previously reported having used Suboxone without these symptoms. He continued to score on the alcohol withdrawal scale and was given 2 mg of Ativan later this afternoon. The patient had continue to report depressed mood and spent much of the day in his room isolating himself. He had acknowledged having consumed a significant amount of food yesterday night and he had reported a history of vomiting before. Mental Status Exam MSE Comments: He is a casually dressed white male who appeared his stated age with a disheveled appearance and poor hygiene. His gait was within normal limits. There was no evidence of any abnormal involuntary motor movements tics or tremors appreciated. His speech was normal in regards to rate rhythm and prosody. His mood was described as depressed. His affect was restricted in range and mood congruent. He did not appear to be responding to internal stimuli. There was no evidence of any delusional thinking at this time. He denied any auditory or visual hallucinations. His recent and remote memory appeared grossly intact. His insight was poor. His judgment is poor. His impulse control appeared poor as well. His attention span was poor. Vitals/I&O/Wt Last Vital Signs Temp 98.5 F 12/02/22 14:00 Pulse 99 12/02/22 14:00 Resp 20 H 12/02/22 14:00 BP 115/75 12/02/22 14:00 Pulse Ox 96 12/02/22 14:00 O2 Del Method 12/02/22 14:00 Weight last 48 hrs Weight 81.647 kg Data NPU 12/02/22 08:19 12/02/22 08:19 A&P Assessment and plan (1) Methamphetamine abuse: (2) Opioid dependence: (3) Alcohol dependence: Plan Patient is a 37-year-old white male with polysubstance abuse including opiates methamphetamine and alcohol along with a history of depression currently admitted with suicidal ideation with genetic loading for substance abuse as well. He is currently homeless. #1. Encourage sobriety at the highest level of care possible at this time #2. Therapeutic observation 15-minute checks. #3. [facility] protocol to monitor for alcohol withdrawal. #4 medicine consult to evaluate for possible cellulitis in right foot. Patient started on antibiotic. #5. Continue Remeron at 30mg at night, reduce suboxone to 2mg/.5mg SL today. #6 we will attempt to gather collateral information. Involuntary Hold Information 96 Hour Hold: 96 Hour Involuntary Admission: No Attestations NPU Medical Necessity Statement*: Patient will be hospitalized in the neuropsychiatric unit with length of stay expected to exceed 2 midnights with likely length of stay of 4 to 6 days. Patient's medications will be adjusted and reexamined while here on the unit. Coding Level of Care Code Acute Code for [facility] Diagnoses Methamphetamine abuse F15.10 Opioid dependence F11.20 Alcohol dependence F10.20
[2022-12-02 18:31] LABS: Urine Appearance Clear (CLEAR); Urine Color Straw (Yellow); pH Urine 5 (5-7)
[2022-12-02 18:32] LABS: Add Urine Culture? No; Add Urine Microscopic? YES; Bacteria Urine TRACE /hpf; Bilirubin Urine Neg (Negative); Blood Urine 3+ (Negative); Glucose Urine UA Norm (Normal); Ketones Urine Negative (Negative); Leukocyte Esterase Urine Negative (Negative); Mucus Urine TRACE /hpf; Nitrate Urine Negative (Negative); Protein Urine 2+ (Negative); Specific Gravity, Urine 1.015 (1.005-1.030); Urobilinogen Urine Norm (Negative); WBC Urine RARE /hpf (0-5)
[2022-12-02 20:07] VITALS: BP 135/89; PULSE 71; RESP 18; TEMP 36.7; O2SAT 97
[2022-12-02] MEDS: mirtazapine 15 mg Tablet PO (21:16)
[2022-12-03] MEDS: ondansetron 4 MG Tablet PO ×2 (00:05→08:15)
[2022-12-03] MEDS: LORazepam 2 mg Tablet PO ×3 (00:05→08:15)
--- NOTE | 2022-12-03 00:07 | PC.NURSE ---
Addendum entered by Saranya Penaloza LPN 12/03/22 00:09: PT STATED I AM NAUSEOUS PT IS SHAKING AND ANXIOUS. PT SCORED 27 ON CIWA SCALE. PT WAS GIVEN ZOFRAN AND ATIVAN ORDERED. Original Note: PT STATED I AM NAUSEOUS AND I CANNOT SLEEP PT WAS GIVEN ZOFRAN AND ATIVAN ORDERED.
[2022-12-03] MEDS: acetaminophen 325 mg Tablet 650 MG PO (02:05)
--- NOTE | 2022-12-03 02:10 | PC.NURSE ---
pt presents to nurses station anxious and states I have a pounding headache . Pt was scored 28 on CIWA scale and PRN ativan was given as ordered. PRN tylenol was given as ordered for pt headache.
[2022-12-03 06:00] VITALS: BP 126/89; PULSE 98; RESP 108; TEMP 36.7; O2SAT 94
--- NOTE | 2022-12-03 06:18 | PC.NURSE ---
pt refused 0600 medication stating I do not feel well on this medication, it is part of the problem.
[2022-12-03] MEDS: doxycycline 100 mg Tablet PO ×2 (08:15→17:54)
[2022-12-03] MEDS: multivitamin therapeutic Tablet 1 TAB PO (08:15)
[2022-12-03] MEDS: thiamine 100 mg Tablet PO (08:15)
[2022-12-03] MEDS: folic acid 1 mg Tablet PO (08:15)
[2022-12-03] MEDS: nicotine 4 mg lozenge MUCOUS MEM (08:19)
[2022-12-03 08:59] LABS: Anion Gap 13.9 (5-19); Blood Urea Nitrogen 28 mg/dL (6-20); Carbon Dioxide 29 mmol/L (22-29); Chloride 96 mmol/L (98-107); Glomerular Filtration Rate 45.3 mL/min (90-130); Glucose 88 mg/dL (65-115); Osmolality Calculated 285 mOsm/kg (285-295); Potassium 3.9 mmol/L (3.5-5.1); Sodium 135 mmol/L (136-145)
[2022-12-03 14:00] VITALS: BP 120/74; PULSE 84; RESP 20; TEMP 36.9; O2SAT 96
--- NOTE | 2022-12-03 16:23 | W.PM.NPUPNS ---
Subjective NPU Subjective: Patient is a 37-year-old white male with a history of alcohol dependence ,opiate dependence, and methamphetamine abuse admitted with depression. Patient reported another episode of emesis last night. He did report that he was feeling better today. He had continued to isolate himself on the milieu. He reported no fever and appeared to be tolerating antibiotics well for his cellulitis. He had reported some depressed mood. He had received Ativan for alcohol withdrawal symptoms. He had endorsed a significant history of alcohol abuse and stated that he would like to consider dual diagnosis treatment on an outpatient basis once he was stabilized. He had endorsed no active suicidal thoughts but continued report depressed mood and low motivation. Mental Status Exam MSE Comments: He is a casually dressed white male who appeared his stated age with a disheveled appearance and poor hygiene with intermittent eye contact. His gait was within normal limits. There was no evidence of any abnormal involuntary motor movements tics tremor was appreciated in his hands and legs. His speech was normal in regards to rate rhythm and prosody. His mood was described as better. His affect was restricted in range and mood incongruent. He did not appear to be responding to internal stimuli. There was no evidence of any delusional thinking at this time. He denied any auditory or visual hallucinations. His recent and remote memory appeared grossly intact. His insight was poor. His judgment is poor. His impulse control appeared poor as well. His attention span was poor. Vitals/I&O/Wt Last Vital Signs Temp 98.5 F 12/03/22 14:00 Pulse 84 12/03/22 14:00 Resp 20 H 12/03/22 14:00 BP 120/74 12/03/22 14:00 Pulse Ox 96 12/03/22 14:00 O2 Del Method 12/03/22 14:00 12/03/22 12/03/22 12/03/22 06:59 14:59 22:59 Intake Total 750 / 750 Balance 750 / 750 Weight last 48 hrs Weight 81.647 kg Data NPU 12/02/22 08:19 12/03/22 08:25 A&P Assessment and plan (1) Methamphetamine abuse: (2) Opioid dependence: (3) Alcohol dependence: Plan Patient is a 37-year-old white male with polysubstance abuse including opiates methamphetamine and alcohol along with a history of depression currently admitted with suicidal ideation with genetic loading for substance abuse as well. He is currently homeless. #1. Encourage sobriety at the highest level of care possible at this time #2. Therapeutic observation 15-minute checks. #3. CIWA protocol to monitor for alcohol withdrawal. #4 medicine consult to evaluate for possible cellulitis in right foot. Patient started on antibiotic. #5. Increase Remeron to 30mg at night, hold suboxone for now. #6 we will attempt to gather collateral information. Involuntary Hold Information 96 Hour Hold: 96 Hour Involuntary Admission: No Attestations NPU Medical Necessity Statement*: Patient will be hospitalized in the neuropsychiatric unit with length of stay expected to exceed 2 midnights with likely length of stay of 4 to 6 days. Patient's medications will be adjusted and reexamined while here on the unit. Coding Level of Care Code Acute Code for [facility] Diagnoses Methamphetamine abuse F15.10 Opioid dependence F11.20 Alcohol dependence F10.20
[2022-12-03] MEDS: trazodone 50 mg Tablet PO (20:24)
[2022-12-03] MEDS: mirtazapine 15 mg Tablet 30 MG PO (20:24)
[2022-12-03 21:05] VITALS: BP 120/74; PULSE 87; RESP 17; TEMP 37.2; O2SAT 94
[2022-12-04 06:00] VITALS: BP 116/77; PULSE 75; RESP 16; TEMP 36.8; O2SAT 95
[2022-12-04] MEDS: TRAMadol 50 mg Tablet PO ×2 (06:25→15:49)
[2022-12-04] MEDS: nicotine 4 mg lozenge MUCOUS MEM ×2 (06:25→18:03)
[2022-12-04] MEDS: multivitamin therapeutic Tablet 1 TAB PO (08:46)
[2022-12-04] MEDS: thiamine 100 mg Tablet PO (08:46)
[2022-12-04] MEDS: folic acid 1 mg Tablet PO (08:46)
[2022-12-04] MEDS: doxycycline 100 mg Tablet PO ×2 (08:46→18:02)
[2022-12-04] MEDS: acetaminophen 325 mg Tablet 650 MG PO (09:23)
[2022-12-04] MEDS: OLANZapine 5 mg ODT PO ×2 (09:24→18:03)
[2022-12-04 14:00] VITALS: BP 120/84; PULSE 83; RESP 18; TEMP 36.7; O2SAT 94
[2022-12-04] MEDS: magnesium hydroxide 30 mL UDC PO (17:00)
--- NOTE | 2022-12-04 17:42 | W.PM.NPUPNS ---
Subjective NPU Subjective: Patient is a 37-year-old white male with a history of alcohol dependence ,opiate dependence, and methamphetamine abuse admitted with depression. Patient reported no emesis last night. He had reported that he had been feeling better. He had reported some foot pain. He did not report any alcohol withdrawal related symptoms today. Patient had reported feeling fatigued and stated that he would like help with managing his alcohol consumption. He denied any hallucinations at this time. He had continued to isolate himself on the milieu but was polite and cooperative with no side effects noted on his medications. He reported having depression for several years even in the absence of substance use. Vitals/I&O/Wt Last Vital Signs Temp 98.0 F 12/04/22 14:00 Pulse 83 12/04/22 14:00 Resp 18 12/04/22 14:00 BP 120/84 12/04/22 14:00 Pulse Ox 94 12/04/22 14:00 O2 Del Method 12/04/22 06:00 12/04/22 12/04/22 12/04/22 06:59 14:59 22:59 Intake Total 750 / 750 Balance 750 / 750 Data NPU 12/02/22 08:19 12/03/22 08:25 A&P Assessment and plan (1) Methamphetamine abuse: (2) Opioid dependence: (3) Alcohol dependence: Plan Patient is a 37-year-old white male with polysubstance abuse including opiates methamphetamine and alcohol along with a history of depression currently admitted with suicidal ideation with genetic loading for substance abuse as well. He is currently homeless. #1. Encourage sobriety at the highest level of care possible at this time #2. Therapeutic observation 15-minute checks. #3. CIWA protocol to monitor for alcohol withdrawal. #4 medicine consult to evaluate for possible cellulitis in right foot. Continue with ABx treatment. #5. Continue Remeron at 30mg at night, referral for outpatient psychotherapy at [facility]. #6 we will attempt to gather collateral information. Involuntary Hold Information 96 Hour Hold: 96 Hour Involuntary Admission: No Attestations NPU Medical Necessity Statement*: Patient will be hospitalized in the neuropsychiatric unit with length of stay expected to be 1-2 days. Coding Level of Care Code Acute Code for [facility] Diagnoses Methamphetamine abuse F15.10 Opioid dependence F11.20 Alcohol dependence F10.20
--- NOTE | 2022-12-04 18:21 | PC.NURSE ---
PT C/O MOD ANXIETY, PRN ZYDIS GIVEN, PT INSTRUCTED ON BREATHING TECH TO CALM SELF, PT RETURN DEMENSTRATED, PT ATE DINNER THEN WENT TO LAY IN BED
[2022-12-04] MEDS: mirtazapine 15 mg Tablet 30 MG PO (20:33)
[2022-12-04] MEDS: trazodone 50 mg Tablet PO (20:33)
[2022-12-04 22:00] VITALS: BP 105/70; PULSE 66; RESP 16; TEMP 36.7; O2SAT 96
[2022-12-05] MEDS: nicotine 4 mg lozenge MUCOUS MEM ×5 (02:42→23:55)
[2022-12-05] MEDS: magnesium hydroxide 30 mL UDC PO (02:42)
[2022-12-05] MEDS: calcium carbonate 500 mg Chew Tablet 1000 MG PO ×2 (02:49→11:40)
[2022-12-05 06:00] VITALS: BP 138/79; PULSE 78; RESP 15; TEMP 36.8; O2SAT 96
[2022-12-05] MEDS: doxycycline 100 mg Tablet PO ×2 (08:35→17:10)
[2022-12-05] MEDS: thiamine 100 mg Tablet PO (08:36)
[2022-12-05] MEDS: multivitamin therapeutic Tablet 1 TAB PO (08:36)
[2022-12-05] MEDS: folic acid 1 mg Tablet PO (08:36)
[2022-12-05] MEDS: TRAMadol 50 mg Tablet PO (08:39)
[2022-12-05 14:00] VITALS: BP 135/87; PULSE 86; RESP 18; TEMP 36.5; O2SAT 95
--- NOTE | 2022-12-05 18:14 | P.NPUPN_ITS ---
Subjective NPU Subjective: Patient presented today reporting that he is doing better. The patient quite frustrated reporting that he had been here for several days and feels like it is time for him to go. But ultimately it was clear that he did not have a place to go and he agreed to work with the treatment team to find appropriate discharge options. He agreed to go to [facility] and we worked with the support team to contact them and also giving him a safe discharge residence. He feels optimistic that he is ready to deal with his sobriety on the outside and that he is committed to recovery. Mental Status Exam MSE Comments: This is a tall well-nourished, well-developed white male in hospital scrubs who appeared his stated age with with improving grooming and eye contact. His gait was within normal limits. There was no evidence of any abnormal involuntary motor movements tics tremor. His speech was normal in rega rds to rate rhythm and prosody. His mood was described as better. His affect was restricted and slightly subdued. Thought process was organized. Thought content: Patient denied suicidal or homicidal ideation. There was no evidence of any delusional thinking at this time. He denied any auditory or visual hallucinations. Attention and concentration were intact and his recent and remote memory appeared grossly intact. His insight and judgment appeared limited and impulse control impaired. Vitals/I&O/Wt Last Vital Signs Temp 97.6 F 12/05/22 22:00 Pulse 80 12/05/22 22:00 Resp 15 12/05/22 22:00 BP 137/87 12/05/22 22:00 Pulse Ox 96 12/05/22 22:00 O2 Del Method 12/05/22 22:00 Data NPU 12/02/22 08:19 12/03/22 08:25 A&P Assessment and plan (1) Methamphetamine abuse: (2) Opioid dependence: (3) Alcohol dependence: Plan Patient is a 37-year-old white male with polysubstance abuse including opiates methamphetamine and alcohol along with a history of depression currently admitted with suicidal ideation with genetic loading for substance abuse as well. He is currently homeless. #1. Encourage sobriety at the highest level of care possible at this time #2. Therapeutic observation 15-minute checks. #3. CIWA protocol to monitor for alcohol withdrawal. #4 medicine consult to evaluate for possible cellulitis in right foot. Continue with ABx treatment. #5. Continue Remeron at 30mg at night, referral for outpatient psychotherapy at [facility] [place]. #6 we will attempt to gather collateral information. Involuntary Hold Information 96 Hour Hold: 96 Hour Involuntary Admission: No Attestations NPU Medical Necessity Statement*: Inpatient hospitalization is medically necessary at the clinically appropriate intervention at this time. We will monitor medication to make changes as indicated. Likely length of stay expected to be 1-2 days. Coding Level of Care Code Acute Code for [facility] Diagnoses Methamphetamine abuse F15.10 Opioid dependence F11.20 Alcohol dependence F10.20
[2022-12-05] MEDS: acetaminophen 325 mg Tablet 650 MG PO (18:26)
[2022-12-05] MEDS: mirtazapine 15 mg Tablet 30 MG PO (20:58)
[2022-12-05] MEDS: trazodone 50 mg Tablet PO (20:58)
[2022-12-05 22:00] VITALS: BP 137/87; PULSE 80; RESP 15; TEMP 36.4; O2SAT 96
[2022-12-05] MEDS: buprenorphine-naloxone 4-1 mg Film 0.5 EACH SUBLINGUAL (23:55)
[2022-12-06 06:00] VITALS: BP 130/75; PULSE 63; RESP 17; TEMP 36.6; O2SAT 95
[2022-12-06] MEDS: doxycycline 100 mg Tablet PO (09:24)
[2022-12-06] MEDS: folic acid 1 mg Tablet PO (09:24)
[2022-12-06] MEDS: docusate sodium 100 mg Capsule PO (09:24)
[2022-12-06] MEDS: magnesium hydroxide 30 mL UDC PO (09:24)
[2022-12-06] MEDS: thiamine 100 mg Tablet PO (09:24)
[2022-12-06] MEDS: multivitamin therapeutic Tablet 1 TAB PO (09:24)
[2022-12-06] MEDS: buprenorphine-naloxone 4-1 mg Film 0.5 EACH SUBLINGUAL (09:27)
[2022-12-06] MEDS: nicotine 4 mg lozenge MUCOUS MEM ×2 (09:27→11:51)
--- NOTE | 2022-12-06 13:51 | P.NPUDS_ITS ---
Diagnoses at Discharge Discharge Diagnosis (1) Methamphetamine abuse: Status: Acute (2) Opioid dependence: Status: Acute (3) Alcohol dependence: Status: Acute Reason for Visit Reason for Visit: depression Brief History: History of Present Illness Alan Alarcon is a 37 year old male who had previously been evaluated at [facility] and admitted for 3 days in December 2021 who was transferred here from the emergency department at [facility] with suicidal ideation. Patient was admitted to the neuropsychiatric unit for further evaluation and treatment. He reports an extended history of depression and states that he has had some suicidal thoughts and reports that he has been homeless for the last few weeks. He reports that 1 week ago [facility] was [facility] staying [facility] days for a drug-related offense. He has reported an extensive history of fentanyl abuse with reported opiate withdrawal occurring. Furthermore, he reports a significant history of alcohol dependence with a history of increased tolerance and significant withdrawal symptoms including seizures and blackouts. He reports consuming approximately half a gallon of alcohol a day. He also reports methamphetamine use for greater than 20 years. He reports having thoughts of killing himself and states that shortly after using methamphetamine he had had heard voices stating that he should hurt others. He had reported a history of psychotic symptoms secondary to the use of methamphetamine. He had also reported a past history of previous suicide attempts including drinking peroxide and cutting his wrist. He had reported feeling more paranoid over the past week. He had reported having problems with sleep continuity disruption and stated that he had not had his medication in several weeks. Denies any past history of tita. Past psychiatric history: He reports several psychiatric hospitalizations. He reports 7 previous hospitalizations beginning at the age of 23 suicidal ideation and a few for detox off of alcohol. Outpatient psychiatric history is reported to be through the [facility]. He reports previous medication trials include Celexa Remeron and gabapentin. He has no reported history of psychotherapy. Previous diagnoses include major depressive disorder polysubstance abuse and antisocial personality disorder. Medications: Mirtazapine 15 mg at night, gabapentin 300 mg 3 times a day, lisinopril 20 mg a day Medical history: Hypertension Surgical history right arm surgery Allergies: No known drug allergies Family psychiatric history: Alcohol dependence in mother Drug and alcohol history: Patient reports marijuana use beginning at the age of 14 leading to the use of stimulants including cocaine at the age of 17 followed by methamphetamine and alcohol abuse also at the age of 17. He reports a history of inpatient rehabilitation stints in the past and a variety of f acilities near [place]. He had reported no history of methadone or Suboxone treatment for opiate dependence but reports opiate use for several years as well with withdrawal symptoms. He currently reports his significant consumption of alcohol on a daily basis for several years along with methamphetamine use for the last 20 years. Social history: Developmental history appeared unremarkable. He was born in [facility] and raised by his biological parents until they at the age of 8. He reports that he lived in between homes and is the only child of his biological parents. He reported no history of sexual physical or emotional abuse. He reports that he grew up near [place] and had graduated high school and attended 2 years of college at which time he began using illicit substances. He reports struggling to maintain work with a history of multiple incarcerations and a history of legal problems stating that he spent 4 years in [facility] from the 2009 through 2013. Hospital Course Hospital Course He slowly acclimated to the individual, group and milieu therapies provided.? He had reported significant nonadherence to his medication for reasons of access as well as active drug addiction. He was restarted on his medications and his Remeron was titrated to 30 mg p.o. nightly along with trazodone to assist with sleep and thiamine for his alcohol dependence. Separation from his drugs of addiction and those medications with sleep and treatment on the unit led to significant improvement.? He was able to contract for safety outside of the hospital prior to discharge.? He worked with the treatment team and was connected to appropriate aftercare.? During the hospitalization, patient had routine laboratory studies which were within normal limits except for few outliers.? Additionally there was a general medical evaluation which was also within normal limits and revealed no new acute processes. Discharge Summary: At the time of discharge, he denied psychosis or lethality.? Mood and anxiety were well managed.? Patient endorsed a plan to avoid all drugs of abuse and follow-up with the aftercare recommendations of the treatment team.? Patient was evaluated and deemed to be absent credible lethality, and had achieved the maximum benefit from an inpatient hospitalization, so was discharged. Involuntary Hold Information 96 Hour Hold: 96 Hour Involuntary Admission: No Mental Status Exam MSE Comments: This is a tall well-nourished, well-developed white male in hospital scrubs who appeared his stated age with with improving grooming and eye contact. His gait was within normal limits. There was no evidence of any abnormal involuntary motor movements tics tremor. His speech was normal in regards to rate rhythm and prosody. His mood was described as better. His affect was restricted and slightly subdued. Thought process was organized. Thought content: Patient denied suicidal or homicidal ideation. There was no evidence of any delusional thinking at this time. He denied any auditory or visual hallucinations. Attention and concentration were intact and his recent and remote memory appeared grossly intact. His insight and judgment appeared limited, but improving and impulse control was limited. Discharge Data Studies Completed and Pending: Completed Studies During Hospitalization Category Date Time Status XR ankle LT min 3 V* [id number] Routine Exams 11/30/22 21:22 Completed XR ankle RT min 3 V* [id number] Routine Exams 11/30/22 21:22 Completed XR foot LT min 3V * [id number] Routine Exams 11/30/22 21:22 [place] [id number] Routin e Ultrasound 11/30/22 21:22 Completed Radiology Impressions Ankle X-Ray 11/30/22 21:22 IMPRESSION: No acute fracture or dislocation. Foot X-Ray 11/30/22 21:22 IMPRESSION: No acute fracture or dislocation. Venous Duplex 11/30/22 21:22 IMPRESSION: No evidence of acute left lower extremity DVT. Laboratory Results WBC 9.4 10^3/uL (4.0- 10.0) 12/02/22 08:19 RBC 4.40 10^6/uL (4.1 -5.3) 12/02/22 08:19 Hgb 14.0 g/dL (11.7-1 6.6) 12/02/22 08:19 Hct 39.9 % (42.0-52.0 ) L 12/02/22 08:19 MCV 90.7 fl (80-94) 12/02/22 08:19 MCH 31.8 pg (28.0-34. 0) 12/02/22 08:19 MCHC 35.1 g/dL (30.0-3 6.0) 12/02/22 08:19 RDW 11.8 % (12.1-15.1 ) L 12/02/22 08:19 Plt Count 321 10^3/cmm (130 -400) 12/02/22 08:19 MPV 9.6 fL (7.4-10.4) 12/02/22 08:19 Neut % (Auto) 61.6 % 12/02/22 08:19 Lymph % (Auto) 29.6 % 12/02/22 08:19 [place] % (Auto) 4.6 % 12/02/22 08:19 Eos % (Auto) 3.3 % 12/02/22 08:19 Baso % (Auto) 0.5 % 12/02/22 08:19 Neut # (Auto) 5.76 10^3/uL (1.8 -7.7) 12/02/22 08:19 Lymph # (Auto) 2.8 10^3/uL (0.8- 4.8) 12/02/22 08:19 [place] # (Auto) 0.4 10^3/uL (0.2- 0.9) 12/02/22 08:19 Eos # (Auto) 0.3 10^3/uL (0.0- 0.8) 12/02/22 08:19 Baso # (Auto) 0.1 10^3/uL (0.0- 0.1) 12/02/22 08:19 Nucleated RBC % (a uto) 0 % 12/02/22 08:19 Nucleated RBCs # 0.0 /100WBC 12/02/22 08:19 Sodium 135 mmol/L (136-1 45) L 12/03/22 08:25 Potassium 3.9 mmol/L (3.5-5 .1) 12/03/22 08:25 Chloride 96 mmol/L (98-107 ) L 12/03/22 08:25 Carbon Dioxide 29 mmol/L (22-29) 12/03/22 08:25 Anion Gap 13.9 (5-19) 12/03/22 08:25 BUN 28 mg/dL (6-20) H 12/03/22 08:25 Creatinine 1.7 mg/dL (0.7-1. 2) H 12/03/22 08:25 GFR Calculation 45.3 mL/min (90-1 30) L 12/03/22 08:25 Glucose 88 mg/dL (65-115) 12/03/22 08:25 Calculated Osmolal ity 285 mOsm/kg (285- 295) 12/03/22 08:25 Calcium 9.0 mg/dL (8.5-10 .5) 12/03/22 08:25 Total Bilirubin 0.2 mg/dL (0.15-1 .2) 11/30/22 22:00 AST 76 U/L (0-40) H 11/30/22 22:00 ALT 30 U/L (0-41) 11/30/22 22:00 Alkaline Phosphata se 76 U/L (40-130) 11/30/22 22:00 Total Protein 6.9 g/dL (6.6-8.7 ) 11/30/22 22:00 Albumin 4.1 g/dL (3.5-5.2 ) 11/30/22 22:00 Globulin 2.8 g/dL (1.3-4.6 ) 11/30/22 22:00 Urine Color Straw (Yellow) 12/02/22 17:30 Urine Appearance Clear (CLEAR) 12/02/22 17:30 Urine pH 5 (5-7) 12/02/22 17:30 Ur Specific Gravit y 1.015 (1.005-1.0 30) 12/02/22 17:30 Urine Protein 2+ (Negative) H 12/02/22 17:30 Urine Glucose (UA) Norm (Normal) 12/02/22 17:30 Urine Ketones Negative (Negati ve) 12/02/22 17:30 Urine Blood 3+ (Negative) H 12/02/22 17:30 Urine Nitrate Negative (Negati ve) 12/02/22 17:30 Urine Bilirubin Neg (Negative) 12/02/22 17:30 Urine Urobilinogen Norm mg/dL (Negat destinee) 12/02/22 17:30 Ur Leukocyte Fátima ase Negative (Negati ve) 12/02/22 17:30 Urine RBC 5-10 /hpf (0-2) H 12/02/22 17:30 Urine WBC Rare /hpf (0-5) 12/02/22 17:30 Ur Squamous Epith Cells None /hpf (0-5) 12/02/22 17:30 Amorphous Sediment Not Reportable 12/02/22 17:30 Urine Bacteria Trace /hpf (NONE) 12/02/22 17:30 Urine Mucus Trace /hpf 12/02/22 17:30 Vitals: Last Vital Signs Temp 97.9 F 12/06/22 06:00 Pulse 63 12/06/22 06:00 Resp 17 12/06/22 06:00 BP 130/75 12/06/22 06:00 Pulse Ox 95 12/06/22 06:00 O2 Del Method 12/06/22 06:00 Discharge Plan Discharge Patient Disposition: Home Prescriptions: New trazodone 50 mg Tablet 50 mg PO BEDTIME PRN (Reason: Sleep) 30 Days Qty: 30 1RF mirtazapine 15 mg Tablet 30 mg PO BEDTIME 30 Days Qty: 30 1RF Vitamin B-1 (mononitrate) 100 mg Tablet 100 mg PO DAILY 30 Days Qty: 30 1RF Discharge Orders: Discharge Order (Routine); Ordered 12/06/22 Ordered By: Sarmad Lu Referrals: [employer] [Other] [facility] [Other] - 01/22/23 12:00 pm (Follow up) [facility] [Other] - 12/12/22 3:20 pm (Follow up apt with Dr. Jessa Crum.) Discharge Diet: Regular Discharge Activity: Resume usual activity Patient Instructions: Alcohol Abuse, Depression, Doxycycline (By mouth), Trazodone (By mouth), Mirtazapine (By mouth), Buprenorphine/Naloxone (Into the mouth), Methamphetamine Use Disorder (DC), Opioid Safety Discharge Attestations NPU Time Spent in Discharge Care*: less than 30 min Specific Discharge Activities: Specific discharge activities: educating patient, discussing with block and case maker/social workers/dc planners, documenting/other paperwork and evaluating patient/reviewing data Coding Level of Care Code Acute Chg FW DC note Diagnoses Methamphetamine abuse F15.10 Opioid dependence F11.20 Alcohol dependence F10.20
[2022-12-06 13:55] VITALS: BP 130/75; PULSE 63; RESP 17; TEMP 36.6; O2SAT 95
[2022-12-06] MEDS: ondansetron 4 MG Tablet PO (14:28)
[2022-12-06] MEDS: diphenhydrAMINE 50 mg Capsule PO (14:28)
[2022-12-06] MEDS: ibuprofen 600 mg Tablet PO (14:28)
== END 2022-12-06 15:24 | disposition home or self-care (01) | DRG 881 ==
PROVIDERS: Internal Medicine; Admitting Provider Psychiatry & Neurology Psychiatry; Visit Provider Psychiatry & Neurology Psychiatry
DX: F32.A Depression, unspecified (principal); L03.116 Cellulitis of left lower limb; F11.20 Opioid dependence, uncomplicated; R45.851 Suicidal ideations; N02.8 Recurrent and persistent hematuria with other morphologic changes; F10.20 Alcohol dependence, uncomplicated; F15.10 Other stimulant abuse, uncomplicated; R45.850 Homicidal ideations; B19.20 Unspecified viral hepatitis C without hepatic coma; I10 Essential (primary) hypertension; F17.200 Nicotine dependence, unspecified, uncomplicated
CPT/HCPCS: 36415; 73610; 73630; 80048; 80053; 81001; 85025; 90471; 90714; 93971; 96372; 97150; 97165; 99238; J0573; J0696; J2060; Q0162; Q0163